=== PATIENT | female | born 1955 | race Two or more races ===

== ENCOUNTER 2021-06-02 13:55 | Observation (INO) ==
--- NOTE | 2021-06-02 14:36 | CT Scan Report ---
CT head/brain wo con CLINICAL HISTORY: 66 years-old Female with vertigo right leg weakeval for stroke. Acute vertigo with weakness TECHNIQUE: Multiple axial CT images of the head were obtained without contrast. A dose lowering tech nique was utilized adhering to the principles of ALARA. COMPARISON: None. FINDINGS: No acute intracranial hemorrhage, midline shift, intracranial mass, hydrocephalus, territorial ischem ia or abnormal extra-axial collection. Cerebral vascular calcifications. The calvarium is intact. The paranasal sinuses, mastoid air cells, and middle ear cavities are clear . IMPRESSION: No acute intracranial abnormality. ACT 112: Negative or not required by law. The above report was generated using voice recognition software. It may contain grammatical, syntax o r spelling errors. Electronically signed by: Norberto Welsh M.D. 06/02/2021 2:35 PM
[2021-06-02] MEDS ORDERED: OPTIRAY 320 125ml IV ONE (14:37)
--- NOTE | 2021-06-02 14:43 | Emergency Department Note ---
History of Present Illness General Chief complaint: Vertigo Stated complaint: HEADACHE, VERITGO, NAUSEA, SOB Time Seen by Provider: 06/02/21 14:06 Source: patient and family Limitations: language barrier (Speaks Sinhala. Granddaughter is translating.) History of Present Illness Provider complaint: Vertigo Onset (ago): hour(s) Location: head Pain Consistency: + constant Maximum Pain Intensity: 4 Quality: + other (Room is spinning around) Exacerbated By: + movement and + other (Standing up) Associated symptoms: + fever/chills, + headaches and + nausea/vomiting; no chest pain, no cough, no shortness of breath or no syncope This is a 66-year-old female with a history of hypertension and depression presenting with sudden onset of vertigo at approximately 10 AM this morning. She only speaks Sinhala. I did obtain history from the patient's granddaughter who is translating for her as well as translating for her mother who was with her when this occurred. Apparently the patient woke up in good health this morning but then at 10 AM started complaining of severe vertigo. It is worse when she tries to stand or move her head. Is better when she stays still. It is associated with nausea but no vomiting. She does complain of a headache on the right side of her head. She states that she does not know when it started. She had significant difficulty getting into the car to come to the hospital due to difficulty walking. Her daughter states that she is very repetitive since this started and keeps asking to have her blood pressure checked. She did not take her morning medications including her blood pressure medication. She is not on aspirin or any anticoagulants as far as the granddaughter knows. She did ask her family what medicine she takes and brought her medicines with her, although many of them are labeled in Sinhala. She does complain of chills but no fever. She has had no cough or cold symptoms. She did have her Covid vaccinations but no booster. She did have a negative PCR Covid test last week when she traveled from [place]. She denies any problems swallowing or sudden change in her vision. She has had no tinnitus or hearing loss. Home Medications Medication Instructions Recorded Confirmed Type buspirone 5 mg tablet 5 mg PO DAILY 06/02/21 06/02/21 History candesartan 16 1 tab PO DAILY 06/02/21 06/02/21 History mg-hydrochlorothiazide 12.5 mg tablet cholecalciferol (vitamin D3) 10 10 mcg PO DAILY 06/02/21 06/02/21 History mcg/mL (400 unit/mL) oral drops ketoprofen 25 mg capsule 25 mg PO DIRECTED 06/02/21 06/02/21 History lansoprazole 30 mg capsule,delayed 30 mg PO DAILY 06/02/21 06/02/21 History release lorazepam 1 mg tablet (Ativan) 1 mg PO DIRECTED 06/02/21 06/02/21 History metoprolol tartrate 50 mg tablet 50 mg PO DIRECTED 06/02/21 06/02/21 History venlafaxine 75 mg tablet,extended 75 mg PO DAILY 06/02/21 06/02/21 History release 24 hr Allergies Allergy/AdvReac Type Severity Reaction Status Date / Time Iodinated Contrast Media AdvReac Intermediate Swelling Verified 06/02/21 15:53 of the Eye Past Med/Surg History Medical History (Updated 06/02/21 @ 19:38 by Hair Zhong MD) Anxiety Hypertension Panic disorder Surgical History (Updated 06/02/21 @ 16:43 by Giulia Ferraro PA-C) History of thyroid surgery Family History Other Depression Parkinson disease Social History (Updated 06/02/21 @ 16:44 by Giulia Ferraro PA-C) Smoking Status: Never smoker Hx Alcohol Use: No Hx Substance Use: No Communication Tools: Other Feels Safe at Home: Yes Review of Systems See HPI for pertinent positives & negatives. and A total of 10 systems reviewed and were otherwise negative Physical Exam Vital Signs Vital Signs - 24 hr 06/02/21 14:01 06/02/21 14:44 06/02/21 16:00 Temperature 36.5 C Temperature Source Oral Pulse Rate 77 Pulse Rate [Apical] 86 74 Pulse Rhythm Regular Pulse Rhythm [Apical] Regular Regular Pulse Strength Normal Pulse Strength [Apical] Normal Respiratory Rate 20 26 H 22 Respiratory Effort / Characteristics Non-Labored Spontaneous Non-Labored Non-Labored Respiratory Depth Normal Normal Respiratory Pattern Regular Blood Pressure 157/113 H Blood Pressure [Left Arm] 186/83 H 159/94 H Blood Pressure Mean 127 Blood Pressure Mean [Left Arm] 117 115 Blood Pressure Position Sitting Blood Pressure Position [Left Arm] Sitting Pulse Oximetry 100 100 100 Oxygen Delivery Method Room Air Room Air Room Air Sepsis Recent Fever Within 48 Hours No Sepsis New/Unexplained Change in Mental Status No Sepsis Action Taken by Nursing No Action Required Constitutional: Vital signs reviewed. Eyes: Pupils are equal round reactive to light. Conjunctiva are noninjected. ENT: Pharynx is clear without erythema or exudate. Mucous membranes are moist. Neck supple without meningeal signs. Respiratory: Clear to auscultation bilaterally. Breath sounds are equal bilaterally. Cardiovascular: Regular rate and rhythm. No rubs or gallops. GI: Soft, nondistended and nontender. Bowel sounds are present. Musculoskeletal: No peripheral edema. No lower extremity tenderness. Integumentary: No cyanosis. or jaundice. Neurologic: The patient is awake and alert. Repetitive. Keeps asking to have her blood pressure checked. Cranial nerves II-XII are intact. Motor is 5 out of 5 all extremities except the right lower extremity where she is 3 out of 5. Sensation is intact to light touch all extremities. No slurring of her speech. No pronator drift. Right leg ataxia. No dysdiadochokinesis. Psychiatric: Anxious appearing. Course Administered Medications Potassium Chloride/Sodium Chloride (Normal Saline W/20 Meq Kcl) 20 meq in 1,000 mls @ 100 mls/hr IV .Q10H TEOFILO Stop: 07/02/21 17:59 Last Admin: 06/02/21 18:22 Dose: 100 mls/hr Documented by: [id number] Venlafaxine HCl (Venlafaxine Hcl Xr 75 Mg Capxr) 75 mg PO DAILY TEOFILO Stop: 07/02/21 17:29 Last Admin: 06/02/21 18:21 Dose: 75 mg Documented by: [id number] Discontinued Medications Aspirin (Aspirin Chew 324 Mg) 324 mg PO NOW STA Stop: 06/02/21 17:09 Last Admin: 06/02/21 18:21 Dose: 324 mg Documented by: [id number] Famotidine (Famotidine 20mg/5ml Iv Push) 20 mg IV ONE STA Stop: 06/02/21 14:45 Last Admin: 06/02/21 14:51 Dose: 20 mg Documented by: [id number] Gadobutrol (Gadobutrol 65ml Vial) 7.2 ml IV ONCE ONE Stop: 06/02/21 17:35 Last Admin: 06/02/21 17:35 Dose: 7.2 ml Documented by: [id number] Sodium Chloride (Nss 1000ml) 500 mls @ 999 mls/hr IV .Q31M ONE Stop: 06/02/21 15:32 Last Infusion: 06/02/21 16:20 Dose: 0 mls/hr Documented by: [id number] Admin: 06/02/21 15:28 Dose: 999 mls/hr Documented by: [id number] Promethazine HCl (Phenergan) 12.5 mg in 50.5 mls @ 202 mls/hr IV NOW STA Stop: 06/02/21 15:58 Last Infusion: 06/02/21 16:20 Dose: 0 mls/hr Documented by: [id number] Admin: 06/02/21 16:02 Dose: 202 mls/hr Documented by: [id number] Ioversol (Optiray 320 125ml) 117 ml IV ONCE ONE Stop: 06/02/21 14:38 Last Admin: 06/02/21 14:38 Dose: 117 ml Documented by: [id number] Loratadine (Loratadine 10 Mg Tab) 10 mg PO NOW ONE Stop: 06/02/21 14:46 Last Admin: 06/02/21 14:52 Dose: 10 mg Documented by: [id number] Meclizine HCl (Meclizine Hcl 25 Mg Tab) 25 mg PO NOW STA Stop: 06/02/21 15:02 Last Admin: 06/02/21 15:12 Dose: 25 mg Documented by: [id number] Methylprednisolone (Methylprednisolone 125 Mg/2 Ml Vial) 125 mg IV NOW STA Stop: 06/02/21 14:45 Last Admin: 06/02/21 14:51 Dose: 125 mg Documented by: [id number] Ondansetron HCl (Ondansetron Inj 2 Mg/Ml 2 Ml Vial) 4 mg IV NOW STA Stop: 06/02/21 14:46 Last Admin: 06/02/21 14:51 Dose: 4 mg Documented by: [id number] Potassium Chloride (Potassium Chloride Crtab 20 Meq Tabcr) 20 meq PO ONE ONE Stop: 06/02/21 17:46 Last Admin: 06/02/21 18:22 Dose: 20 meq Documented by: [id number] Critical Care Time Critical Care Time: Yes Total Critical Care Time: 45 I have personally spent approximately 45 minutes of critical care time in the direct management of this patient. This includes bedside care, interpretation of diagnostic studies, and testing, discussion with consultants, patient, and family members, and other required patient management activities. These minutes are in excess of all separately billable procedures. Medical Decision Making Differential Diagnosis Acute CVA, vertebrobasilar insufficiency, intracranial hemorrhage, complex migraine, BPPV, labyrinthitis Medical Records Attestation: I reviewed the patient's medical records. I did perform a limited focused review of portions of the patient's old chart on the electronic medical record. The patient has had no prior visits to this hospital. Home Medications Current Medication List: was personally reviewed by me Laboratory Data Attestation: I reviewed the patient's lab results. Result diagrams: 06/02/21 14:44 06/02/21 14:44 Lab Results 06/02/21 06/02/21 06/02/21 Range/Units 14:44 14:44 14:44 WBC 6.84 (4.8-10.8) K/uL RBC 4.31 (4.2-5.4) M/uL Hgb 12.8 (12.0-16.0) g/dL Hct 38.6 (37-47) % MCV 89.6 (80-100) fL MCH 29.7 (25-34) pg MCHC 33.2 (32-36) g/dL RDW Std Deviation 47.1 H (36.4-46.3) fL RDW Coeff of [place] 14.4 (11.5-14.5) % Plt Count 216 (130-400) K/uL MPV 10.3 (7.4-10.4) fL Immature Gran % (Auto) 0.1 % Neut % (Auto) 63.6 % Lymph % (Auto) 28.9 % [place] % (Auto) 6.6 % Eos % (Auto) 0.7 % Baso % (Auto) 0.1 % Neut # (Auto) 4.34 (1.4-6.5) K/uL Lymph # (Auto) 1.98 (1.2-3.4) K/uL [place] # (Auto) 0.45 (0.11-0.59) K/uL Eos # (Auto) 0.05 (0-0.5) K/uL Baso # (Auto) 0.01 (0-0.2) K/uL Immature Gran # (Auto) 0.01 (0.00-0.02) K/uL PT 10.4 (9.0-12.0) Seconds INR 1.0 (0.9-1.1) APTT 27.0 (21.0-31.0) Seconds PTT Ratio 1.0 Sodium 131 L (136-145) mmol/L Potassium 3.3 L (3.5-5.1) mmol/L Chloride 101 (98-107) mmol/L Carbon Dioxide 20 L (21-32) mmol/L Anion Gap 10.0 (3-11) BUN 17 (7-18) mg/dl Creatinine 1.06 (0.6-1.2) mg/dl Est Cr Clr Drug Dosing Not Reportable Est GFR ( Amer) 63.4 ml/min Est GFR (Non-Af Amer) 54.7 ml/min BUN/Creatinine Ratio 16.2 (10-20) Glucose 143 H (70-99) mg/dl POC Glucose (70-99) mg/dl Calcium 8.8 (8.5-10.1) mg/dl Magnesium 2.0 (1.8-2.4) mg/dl Total Bilirubin 0.2 (0.2-1) mg/dl AST 14 L (15-37) U/L ALT 23 (12-78) Alkaline Phosphatase 66 (45-117) U/L Troponin I < 0.015 (0-0.045) ng/ml Total Protein 6.3 L (6.4-8.2) gm/dl Albumin 3.0 L (3.4-5.0) gm/dl Globulin 3.3 (2.5-4.0) gm/dl Albumin/Globulin Ratio 0.9 (0.9-2) SARS-CoV-2, RNA, NAAT (NEGATIVE) Blood Type Antibody Screen 06/02/21 06/02/21 06/02/21 Range/Units 14:46 14:48 15:20 WBC (4.8-10.8) K/uL RBC (4.2-5.4) M/uL Hgb (12.0-16.0) g/dL Hct (37-47) % MCV (80-100) fL MCH (25-34) pg MCHC (32-36) g/dL RDW Std Deviation (36.4-46.3) fL RDW Coeff of [place] (11.5-14.5) % Plt Count (130-400) K/uL MPV (7.4-10.4) fL Immature Gran % (Auto) % Neut % (Auto) % Lymph % (Auto) % [place] % (Auto) % Eos % (Auto) % Baso % (Auto) % Neut # (Auto) (1.4-6.5) K/uL Lymph # (Auto) (1.2-3.4) K/uL [place] # (Auto) (0.11-0.59) K/uL Eos # (Auto) (0-0.5) K/uL Baso # (Auto) (0-0.2) K/uL Immature Gran # (Auto) (0.00-0.02) K/uL PT (9.0-12.0) Seconds INR (0.9-1.1) APTT (21.0-31.0) Seconds PTT Ratio Sodium (136-145) mmol/L Potassium (3.5-5.1) mmol/L Chloride (98-107) mmol/L Carbon Dioxide (21-32) mmol/L Anion Gap (3-11) BUN (7-18) mg/dl Creatinine (0.6-1.2) mg/dl Est Cr Clr Drug Dosing Est GFR ( Amer) ml/min Est GFR (Non-Af Amer) ml/min BUN/Creatinine Ratio (10-20) Glucose (70-99) mg/dl POC Glucose 148 H (70-99) mg/dl Calcium (8.5-10.1) mg/dl Magnesium (1.8-2.4) mg/dl Total Bilirubin (0.2-1) mg/dl AST (15-37) U/L ALT (12-78) Alkaline Phosphatase (45-117) U/L Troponin I (0-0.045) ng/ml Total Protein (6.4-8.2) gm/dl Albumin (3.4-5.0) gm/dl Globulin (2.5-4.0) gm/dl Albumin/Globulin Ratio (0.9-2) SARS-CoV-2, RNA, NAAT NEGATIVE (NEGATIVE) Blood Type O Positive Antibody Screen NEGATIVE Imaging Data Radiologist's Impression: Head CT 06/02/21 14:17 CT head/brain wo con CLINICAL HISTORY: 66 years-old Female with vertigo right leg weakeval for stroke. Acute vertigo with weakness TECHNIQUE: Multiple axial CT images of the head were obtained without contrast. A dose lowering technique was utilized adhering to the principles of ALARA. COMPARISON: None. FINDINGS: No acute intracranial hemorrhage, midline shift, intracranial mass, hydrocephalus, territorial ischemia or abnormal extra-axial collection. Cerebral vascular calcifications. The calvarium is intact. The paranasal sinuses, mastoid air cells, and middle ear cavities are clear. IMPRESSION: No acute intracranial abnormality. ACT 112: Negative or not required by law. The above report was generated using voice recognition software. It may contain grammatical, syntax or spelling errors. Electronically signed by: Norberto Welsh M.D. 06/02/2021 2:35 PM Head CTA 06/02/21 14:17 CT angio head w con, CT angio neck with con CLINICAL HISTORY: Stroke Like Symptoms vertigo, right leg weakness TECHNIQUE: CT angiography of the head and neck was performed following intravenous administration of iodinated contrast. Coronal and sagittal MIPS were obtained from the axial data set and were submitted for review. Automated dose lowering techniques and/or adjustment according to patient size were utilized for this examination. All measurements were calculated based on NASCET criteria. Comparison: CT head 06/02/2021 FINDINGS: CTA Neck: A 3 vessel aortic arch is shown. There is no significant atherosclerotic plaque in the aortic arch or the origins of the innominate, left common carotid, and left subclavian arteries. The common carotid, external carotid, cervical segments of the internal carotid arteries, and the cervical segments of the vertebral arteries are patent. There is no hemodynamically significant diameter stenosis or dissection present. The left vertebral artery is dominant. There are large right greater than left thyroid nodules measuring 5.4 cm on the right and 1.7 cm on the left. CTA Head: The anterior and posterior cerebral circulations are patent. No hemodynamically significant stenosis, aneurysm, dissection, or arteriovenous malformation is shown. Atherosclerotic disease is noted. IMPRESSION: 1. No occlusion, hemodynamically significant stenosis, aneurysm, dissection, or arteriovenous malformation in the major intracranial arteries. 2. No occlusion, hemodynamically significant stenosis, or dissection in the major cervical arteries. 3. Large right greater than left thyroid nodules. If not previously evaluated, nonemergent ultrasound is recommended. Assessment of stenosis of the internal carotid arteries is based on NASCET criteria. ACT 112: Negative or not required by law. Electronically signed by: Anoop Rubi M.D. 06/02/2021 2:55 PM Neck CTA 06/02/21 14:17 CT angio head w con, CT angio neck with con CLINICAL HISTORY: Stroke Like Symptoms vertigo, right leg weakness TECHNIQUE: CT angiography of the head and neck was performed following intravenous administration of iodinated contrast. Coronal and sagittal MIPS were obtained from the axial data set and were submitted for review. Automated dose lowering techniques and/or adjustment according to patient size were utilized for this examination. All measurements were calculated based on NASCET criteria. Comparison: CT head 06/02/2021 FINDINGS: CTA Neck: A 3 vessel aortic arch is shown. There is no significant atherosclerotic plaque in the aortic arch or the origins of the innominate, left common carotid, and left subclavian arteries. The common carotid, external carotid, cervical segments of the internal carotid arteries, and the cervical segments of the vertebral arteries are patent. There is no hemodynamically significant diameter stenosis or dissection present. The left vertebral artery is dominant. There are large right greater than left thyroid nodules measuring 5.4 cm on the right and 1.7 cm on the left. CTA Head: The anterior and posterior cerebral circulations are patent. No hemodynamically significant stenosis, aneurysm, dissection, or arteriovenous malformation is shown. Atherosclerotic disease is noted. IMPRESSION: 1. No occlusion, hemodynamically significant stenosis, aneurysm, dissection, or arteriovenous malformation in the major intracranial arteries. 2. No occlusion, hemodynamically significant stenosis, or dissection in the major cervical arteries. 3. Large right greater than left thyroid nodules. If not previously evaluated, nonemergent ultrasound is recommended. Assessment of stenosis of the internal carotid arteries is based on NASCET criteria. ACT 112: Negative or not required by law. Electronically signed by: Anoop Rubi M.D. 06/02/2021 2:55 PM Brain MRI 06/02/21 15:52 MR brain wo/w con CLINICAL HISTORY: vertigo eval for cva TECHNIQUE: Multiplanar and multisequence MR images of the brain were obtained prior to and following administration of gadolinium contrast. Comparison: None available at the time of this dictation. FINDINGS: No abnormal restricted diffusion is identified. The white matter is un remarkable. The ventricular system is normal in appearance. There is no evidence of acute intraparenchymal hemorrhage. No extra axial fluid collections are seen. There are no masses, mass effect, or midline shift. No abnormal enhancement is seen. The corpus callosum, pituitary gland, and cerebellar tonsils appear grossly unremarkable. Flow voids of the major intracranial arterial vessels are identified. The imaged portions of the paranasal sinuses, mastoid air cells, and orbits are unremarkable. IMPRESSION: No acute abnormalities. ACT 112: Negative or not required by law. Electronically signed by: Anoop Rubi M.D. 06/02/2021 6:24 PM ECG Data Attestation: I personally reviewed and interpreted this ECG as follows: Indication: + altered mental status and + other (Stroke symptoms) Rate (beats per minute): 76 Rhythm: + normal sinus ECG [place]: + Normal ECG ST segments: no ST elevation ECG Findings: no PVCs Comparison ECG Date: no prior available MDM Narrative I did evaluate the patient as noted above. I did obtain history from the patient via her granddaughter who is translating from Sinhala. They were offered a professional translating service but declined. I also obtained history from her daughter over the telephone with her granddaughter translating. Originally I was told that her symptoms started at 11 AM and so I did call a stroke alert. Later I was told that her symptoms actually started at least by 10 AM. This is not even a reliable time and so I did feel IV TPA was not indicated given the timing. I did discuss the case with the [facility] stroke neurologist who assessed the patient via telehealth and agreed that TPA was not indicated. We did discuss this with the patient and her family. I did notice some weakness to the right leg on my examination but when the neurologist examined her she did not appear to have this weakness. IV access was established. I did order a CT of the head and CT angiogram of the head and neck. I did review the images myself as well as the radiology report as jose cribed above.there is no evidence of acute CVA or bleed. There is no evidence of acute process. She does have thyroid nodules which were discussed with the patient and her family. Unfortunately the patient developed an allergic reaction to the IV contrast. She developed hives to her face but had no difficulty breathing or hives other on her body. I did treat her with Solu- Medrol IV, Zofran IV and Claritin p.o. I did not wish to give her Benadryl as I want to be able to reassess her mental status regularly. I did place an order for continuous cardiac monitoring. The monitor showed normal sinus rhythm at a rate of 74 bpm. I did order and personally review the patient's 12-lead EKG as d escribed above. She has no acute ischemic changes. I did order and review the patient's blood work as noted in the electronic medical record. CBC is unremarkable without leukocytosis or anemia. Electrolytes demonstrate a sodium of 131 and a potassium of 3.3. Glucose is 148 at the bedside. Troponin is negative. LFTs are unremarkable. Screening for Covid is negative. I did reassess the patient several times. She had worsening vertigo and now states is worse when she lies down. She was given meclizine p.o. and then Phenergan 12.5 mg IV. She was also given normal saline IV. Her symptoms did improve significantly. I did discuss the case with the hospitalist and case picker. I did order an MRI of the brain. Impression & Plan Acute alteration in mental status, Vertigo, Acute confusion, Ataxia, Acute hyponatremia, Acute hypokalemia Discharge Plan Visit Data Chief Complaint: Vertigo Stated Complaint: HEADACHE, VERITGO, NAUSEA, SOB ED Provider: Hair Zhong Discharge Problem: Acute alteration in mental status, Vertigo, Acute confusion, Ataxia, Acute hyponatremia, Acute hypokalemia Patient Disposition: Being Evaluated by Hospitalist Forms Stand Alone Forms: My [facility] Prescriptions Prescriptions: No Action ketoprofen 25 mg Capsule 25 mg PO DIRECTED RF: 0 candesartan-hydrochlorothiazid 16-12.5 mg Tablet 1 tab PO DAILY RF: 0 metoprolol tartrate 50 mg Tablet 50 mg PO DIRECTED RF: 0 venlafaxine 75 mg Tablet Extended Release 24hr 75 mg PO DAILY RF: 0 buspirone 5 mg Tablet 5 mg PO DAILY RF: 0 lorazepam [Ativan] 1 mg Tablet 1 mg PO DIRECTED RF: 0 lansoprazole 30 mg Capsule,Delayed Release(Dr/Ec) 30 mg PO DAILY RF: 0 cholecalciferol (vitamin D3) 10 mcg/mL (400 unit/mL) Drops 10 mcg PO DAILY RF: 0 Referrals Referrals: PCP,NO [Primary Care Provider] -
[2021-06-02] MEDS ORDERED: FAMOTIDINE 20MG/5ML IV PUSH IV STA (14:44)
[2021-06-02] MEDS ORDERED: methylPREDNISolone 125 MG/2 ML VIAL IV STA (14:44)
[2021-06-02] MEDS ORDERED: ONDANSETRON INJ 2 MG/ML 2 ML VIAL IV STA (14:45)
[2021-06-02] MEDS ORDERED: LORATADINE 10 MG TAB PO ONE (14:45)
--- NOTE | 2021-06-02 14:56 | CT Scan Report ---
CT angio head w con, CT angio neck with con CLINICAL HISTORY: Stroke Like Symptoms vertigo, right leg weakness TECHNIQUE: CT angiography of the head and neck was performed following intravenous administration of iodinated contrast. Coronal and sagittal MIPS were obtained from the axial data set and were submitte d for review. Automated dose lowering techniques and/or adjustment according to patient size were ut ilized for this examination. All measurements were calculated based on NASCET criteria. Comparison: CT head 06/02/2021 FINDINGS: CTA Neck: A 3 vessel aortic arch is shown. There is no significant atherosclerotic plaque in the aor tic arch or the origins of the innominate, left common carotid, and left subclavian arteries. The co mmon carotid, external carotid, cervical segments of the internal carotid arteries, and the cervical segments of the vertebral arteries are patent. There is no hemodynamically significant diameter sten osis or dissection present. The left vertebral artery is dominant. There are large right greater than left thyroid nodules measuring 5.4 cm on the right and 1.7 cm on the left. CTA Head: The anterior and posterior cerebral circulations are patent. No hemodynamically significan t stenosis, aneurysm, dissection, or arteriovenous malformation is shown. Atherosclerotic disease is noted. IMPRESSION: 1. No occlusion, hemodynamically significant stenosis, aneurysm, dissection, or arteriovenous malfor mation in the major intracranial arteries. 2. No occlusion, hemodynamically significant stenosis, or dissection in the major cervical arteries. 3. Large right greater than left thyroid nodules. If not previously evaluated, nonemergent ultrasoun d is recommended. Assessment of stenosis of the internal carotid arteries is based on NASCET criteria. ACT 112: Negative or not required by law. Electronically signed by: Anoop Rubi M.D. 06/02/2021 2:55 PM
[2021-06-02] MEDS ORDERED: MECLIZINE HCL 25 MG TAB PO STA (15:01)
[2021-06-02 15:02] LABS: Basophils # (auto) 0.01 K/uL (0-0.2); Basophils % (auto) 0.1 %; Eosinophils # (auto) 0.05 K/uL (0-0.5); Eosinophils % (auto) 0.7 %; Hematocrit (blood only) 38.6 % (37-47); Hemoglobin 12.8 g/dL (12.0-16.0); Immature Granulocytes # (auto) 0.01 K/uL (0.00-0.02); Immature Granulocytes % (auto) 0.1 %; Lymphocytes # (auto) 1.98 K/uL (1.2-3.4); Lymphocytes % (auto) 28.9 %; Mean Corpuscular Hemoglobin 29.7 pg (25-34); Mean Corpuscular Hgb Conc 33.2 g/dL (32-36); Mean Corpuscular Volume 89.6 fL (80-100); Mean Platelet Volume 10.3 fL (7.4-10.4); Monocytes # (auto) 0.45 K/uL (0.11-0.59); Monocytes % (auto) 6.6 %; Neutrophils # (auto) 4.34 K/uL (1.4-6.5); Neutrophils % (auto) 63.6 %; Platelet Count 216 K/uL (130-400); RDW Coefficient of Variation 14.4 % (11.5-14.5); RDW Standard Deviation 47.1 fL (36.4-46.3); Red Blood Count 4.31 M/uL (4.2-5.4); White Blood Count 6.84 K/uL (4.8-10.8)
[2021-06-02] MEDS ORDERED: SODIUM CHLORIDE 0.9% 1000ML 500 ML IV ONE (15:02)
[2021-06-02 15:15] LABS: Prothrombin Time 10.4 Seconds (9.0-12.0)
[2021-06-02 15:22] LABS: Alanine Aminotransferase 23 (12-78); Aspartate Aminotransferase 14 U/L (15-37); BUN Creatinine Ratio 16.2 (10-20); Blood Urea Nitrogen 17 mg/dl (7-18); Calcium 8.8 mg/dl (8.5-10.1); Carbon Dioxide 20 mmol/L (21-32); Chloride 101 mmol/L (98-107); Est GFR (African American) 63.4 ml/min; Est GFR (Non-African American) 54.7 ml/min; Glucose 143 mg/dl (70-99); Potassium 3.3 mmol/L (3.5-5.1); Sodium 131 mmol/L (136-145)
[2021-06-02 15:27] LABS: Albumin Globulin Ratio 0.9 (0.9-2); Alkaline Phosphatase 66 U/L (45-117); Bilirubin,Total 0.2 mg/dl (0.2-1); Globulin 3.3 gm/dl (2.5-4.0); Total Protein 6.3 gm/dl (6.4-8.2); Troponin I < 0.015 ng/ml (0-0.045)
[2021-06-02] MEDS ORDERED: PROMETHAZINE 12.5 MG/50.5 ML BAG IV STA (15:44)
--- NOTE | 2021-06-02 15:49 | History & Physical Report ---
Date of Service June 02, 2021 Assessment & Plan (1) Vertigo: (2) AMS (altered mental status): (3) Right sided weakness: Plan: This is a 66yo F visiting from [place] with a PMH of HTN and anxiety who presents with vertigo, confusion and right sided weakness that is new since this morning. RLE weakness improved, still with vertigo and confusion Non-compliance with BP medications for past few days. No known stroke history Given aspirin 324mg in ED CT head with no acute intracranial abnormality CTA head/neck: * 1. No occlusion, hemodynamically significant stenosis, aneurysm, dissection, or arteriovenous malformation in the major intracranial arteries. * 2. No occlusion, hemodynamically significant stenosis, or dissection in the major cervical arteries. * 3. Large right greater than left thyroid nodules. If not previously evaluated, nonemergent ultrasound is recommended. Vertigo slightly improved with meclizine. Plan to continue PRN Brain MRI w/wo, echo with bubble study ordered PT/OT/speech evaluation ordered, fasting lipid panel and a1c in AM Routine neuro consult, aspirin and statin tomorrow (4) Hypokalemia: (5) Hyponatremia: Plan: Na 131, potassium 3.3 in setting of HCTZ - hold for now Receiving gentle IV fluids. Replacing potassium. Repeat BMP tomorrow (6) Panic disorder: (7) Anxiety: Plan: Given missed doses of venlafaxine, buspar. Clarifying Ativan dose with family - needs to be updated (8) Hypertension: Plan: Plan to hold antihypertensives for now to allow for permissive HTN in setting of possible ischemic event DVT Ppx: SQ heparin Code status: FULL PCP: Resides in [place] (here visiting family) Dispo: Observation PCU Patient seen in collaboration with Dr. Sagastume. Please see addendum. History of Present Illness Chief Complaint: strokelike symptoms Primary Care Provider: NO PCP This is a 66yo F with a PMH of HTN and anxiety who presents with vertigo since 10 this morning. Patient is visiting family from [place] for the holidays and family is interpreting at bedside. Patient reportedly woke up feeling well and made herself breakfast and was in normal state of health. Vertigo worsened with movement and improves at rest. Is associated with nausea but no vomiting. Did have a headache earlier today and is unsure when it started. Family denies any history of vertigo. Developed right-sided weakness during transition to come in the hospital and family states it took them approximately 40 minutes for granddaughter and friend to get her here due to severe vertigo and weakness. States she was still able to ambulate with assistance. Weakness has since improved, per patient. No known history of vertigo. Family states patient is confused and has been repeating information since arrival. Believes she is still in [place] and is disoriented, per family, which is not her baseline. Keeps asking for blood pressure to be rechecked. Received psychiatric treatment for panic attacks a few days ago in [place] and was told that her elevated blood pressure was due to anxiety, and so she stopped taking blood pressure medications at that time. Is not on aspirin or any blood thinners. No known personal or family stroke history. Denies any fever, chills, chest pain, shortness of breath or abdominal pain. Unable to obtain full ROS due to confusion. Allergies Allergy/AdvReac Type Severity Reaction Status Date / Time Iodinated Contrast Media AdvReac Intermediate Swelling Verified 06/02/21 15:53 of the Eye Home Medications Medication Instructions Recorded Confirmed Type buspirone 5 mg tablet 5 mg PO DAILY 06/02/21 06/02/21 History candesartan 16 1 tab PO DAILY 06/02/21 06/02/21 History mg-hydrochlorothiazide 12.5 mg tablet cholecalciferol (vitamin D3) 10 10 mcg PO DAILY 06/02/21 06/02/21 History mcg/mL (400 unit/mL) oral drops ketoprofen 25 mg capsule 25 mg PO DIRECTED 06/02/21 06/02/21 History lansoprazole 30 mg capsule,delayed 30 mg PO DAILY 06/02/21 06/02/21 History release lorazepam 1 mg tablet (Ativan) 1 mg PO DIRECTED 06/02/21 06/02/21 History metoprolol tartrate 50 mg tablet 50 mg PO DIRECTED 06/02/21 06/02/21 History venlafaxine 75 mg tablet,extended 75 mg PO DAILY 06/02/21 06/02/21 History release 24 hr Past Med/Surg History Medical History (Updated 06/02/21 @ 16:42 by Giulia Ferraro PA-C) Anxiety Hypertension Panic disorder Surgical History (Updated 06/02/21 @ 16:43 by Giulia Ferraro PA-C) History of thyroid surgery Family History Other Depression Parkinson disease Social History (Updated 06/02/21 @ 16:44 by Giulia Ferraro PA-C) Smoking Status: Never smoker Hx Alcohol Use: No Hx Substance Use: No Communication Tools: Other Feels Safe at Home: Yes Review of Systems Review of Systems: Unobtainable due to cognitive status Limited ROS in HPI. Remainder unobtainable due to cognitive status Physical Exam Physical Exam: General Appearance: WD/WN, vitals as above, NAD, sitting upright in bed, appears anxious, able to follow commands Head: normocephalic, atraumatic Eyes: normal inspection, PERRL, conjunctivae normal, anicteric sclerae ENT: external ear and nose normal, oropharynx normal Neck: normal visual inspection, trachea midline, no thyromegaly Respiratory: normal respiratory effort, lungs clear to auscultation, no wheeze, rales, rhonchi. No accessory muscle use Cardiovascular: regular rate, rhythm, no murmur, normal peripheral pulses, no BLE edema. Vessels: no JVD Chest: normal inspection of chest Abdomen/GI: normal bowel sounds, soft, nontender, no hepatosplenomegaly Extremities/Musculoskeletal: no cyanosis or clubbing, extremities motor strength 5/5 Neurologic: PERRL, EOMI, accommodation nl, no vertigo noted, no face palsy, no dysarthria, CN's II-XI intact bilaterally and moves all extremities Psychiatric: A+Ox person but not to time or place, anxious Skin: no rashes, normal color, warm/dry Results & Data Results & Data ([facility]) Vital Signs (Past 12 Hours) Vital Signs Temp Pulse Pulse Resp BP BP Pulse Ox 06/02/21 14:44 86 26 H 186/83 H 100 06/02/21 14:01 36.5 C 77 20 157/113 H 100 Laboratory Results Short CBC 06/02/21 Range/Units 14:44 WBC 6.84 (4.8-10.8) K/uL Hgb 12.8 (12.0-16.0) g/dL Hct 38.6 (37-47) % Plt Count 216 (130-400) K/uL BMP 06/02/21 14:44 Sodium 131 L Potassium 3.3 L Chloride 101 Carbon Dioxide 20 L BUN 17 Creatinine 1.06 Glucose 143 H Calcium 8.8 Cardiac Enzymes 06/02/21 Range/Units 14:44 Troponin I < 0.015 (0-0.045) ng/ml Liver Function 06/02/21 Range/Units 14:44 Total Bilirubin 0.2 (0.2-1) mg/dl AST 14 L (15-37) U/L ALT 23 (12-78) Alkaline Phosphatase 66 (45-117) U/L Albumin 3.0 L (3.4-5.0) gm/dl Diagnostic Findings Head CT 06/02/21 14:17 CT head/brain wo con CLINICAL HISTORY: 66 years-old Female with vertigo right leg weakeval for stroke. Acute vertigo with weakness TECHNIQUE: Multiple axial CT images of the head were obtained without contrast. A dose lowering technique was utilized adhering to the principles of ALARA. COMPARISON: None. FINDINGS: No acute intracranial hemorrhage, midline shift, intracranial mass, hydrocephalus, territorial ischemia or abnormal extra-axial collection. Cerebral vascular calcifications. The calvarium is intact. The paranasal sinuses, mastoid air cells, and middle ear cavities are clear. IMPRESSION: No acute intracranial abnormality. ACT 112: Negative or not required by law. The above report was generated using voice recognition software. It may contain grammatical, syntax or spelling errors. Electronically signed by: Norberto Welsh M.D. 06/02/2021 2:35 PM Head CTA 06/02/21 14:17 CT angio head w con, CT angio neck with con CLINICAL HISTORY: Stroke Like Symptoms vertigo, right leg weakness TECHNIQUE: CT angiography of the head and neck was performed following intravenous administration of iodinated contrast. Coronal and sagittal MIPS were obtained from the axial data set and were submitted for review. Automated dose lowering techniques and/or adjustment according to patient size were utilized for this examination. All measurements were calculated based on NASCET criteria. Comparison: CT head 06/02/2021 FINDINGS: CTA Neck: A 3 vessel aortic arch is shown. There is no significant atherosclerotic plaque in the aortic arch or the origins of the innominate, left common carotid, and left subclavian arteries. The common carotid, external carotid, cervical segments of the internal carotid arteries, and the cervical segments of the vertebral arteries are patent. There is no hemodynamically significant diameter stenosis or dissection present. The left vertebral artery is dominant. There are large right greater than left thyroid nodules measuring 5.4 cm on the right and 1.7 cm on the left. CTA Head: The anterior and posterior cerebral circulations are patent. No hemodynamically significant stenosis, aneurysm, dissection, or arteriovenous malformation is shown. Atherosclerotic disease is noted. IMPRESSION: 1. No occlusion, hemodynamically significant stenosis, aneurysm, dissection, or arteriovenous malformation in the major intracranial arteries. 2. No occlusion, hemodynamically significant stenosis, or dissection in the major cervical arteries. 3. Large right greater than left thyroid nodules. If not previously evaluated, nonemergent ultrasound is recommended. Assessment of stenosis of the internal carotid arteries is based on NASCET criteria. ACT 112: Negative or not required by law. Electronically signed by: Anoop Rubi M.D. 06/02/2021 2:55 PM Neck CTA 06/02/21 14:17 CT angio head w con, CT angio neck with con CLINICAL HISTORY: Stroke Like Symptoms vertigo, right leg weakness TECHNIQUE: CT angiography of the head and neck was performed following intravenous administration of iodinated contrast. Coronal and sagittal MIPS were obtained from the axial data set and were submitted for review. Automated dose lowering techniques and/or adjustment according to patient size were utilized for this examination. All measurements were calculated based on NASCET criteria. Comparison: CT head 06/02/2021 FINDINGS: CTA Neck: A 3 vessel aortic arch is shown. There is no significant atherosclerotic plaque in the aortic arch or the origins of the innominate, left common carotid, and left subclavian arteries. The common carotid, external carotid, cervical segments of the internal carotid arteries, and the cervical segments of the vertebral arteries are patent. There is no hemodynamically sig nificant diameter stenosis or dissection present. The left vertebral artery is dominant. There are large right greater than left thyroid nodules measuring 5.4 cm on the right and 1.7 cm on the left. CTA Head: The anterior and posterior cerebral circulations are patent. No hemodynamically significant stenosis, aneurysm, dissection, or arteriovenous malformation is shown. Atherosclerotic disease is noted. IMPRESSION: 1. No occlusion, hemodynamically significant stenosis, aneurysm, dissection, or arteriovenous malformation in the major intracranial arteries. 2. No occlusion, hemodynamically significant stenosis, or dissection in the major cervical arteries. 3. Large right greater than left thyroid nodules. If not previously evaluated, nonemergent ultrasound is recommended. Assessment of stenosis of the internal carotid arteries is based on NASCET criteria. ACT 112: Negative or not required by law. Electronically signed by: Anoop Rubi M.D. 06/02/2021 2:55 PM Supervising Physician Co-Signing Physician Notes Attending addendum: The patient was seen and examined in emergency room in presence of the son She speaks Hungarian and cannot understand or speak Azeri The conversation was done through the son in the room The symptoms have been vague. She has a history of panic disorder and also chronic dizziness and episodic hypertension. Has been taking medications for those but not for the blood pressure. This morning around 10 AM she complained of severe dizziness and headache when she was brought into the emergency room with a possible stroke alert She cannot remember this episode during my examination at around 6:25 PM. She denies any significant neurological symptoms or other symptoms On examination No apparent distress at rest Hemodynamically stable with blood pressure on the upper side at 159/94 Chestclear HeartS1, S2 no murmur Abdomenbenign Extremitiesno edema [employer]-she is alert, awake and oriented x3. She does not have any focal sensory and/or motor deficit. Her labs, EKG and imaging studies reviewed Has history of dizziness and presented with severe vertigo doubt any stroke Episodic hypertension Panic disorder Stroke work-up in progress and so far imaging studies are negative We will observe in the hospital and likely discharge tomorrow Agree with assessment and plan as outlined above by DOLLY Davies Dr
[2021-06-02] MEDS ORDERED: ASPIRIN CHEW 324 MG PO STA (17:08)
[2021-06-02] MEDS ORDERED: GADOBUTROL 65ML VIAL IV ONE (17:34)
[2021-06-02] MEDS ORDERED: POTASSIUM CHLORIDE CRTAB 20 MEQ TABCR PO ONE (17:45)
[2021-06-02] MEDS: VENLAFAXINE HCL XR 75 MG CAPXR PO SCH (18:21)
[2021-06-02] MEDS: NSS + 20MEQ KCL 20 MEQ/1,000 ML BAG IV SCH (18:22)
--- NOTE | 2021-06-02 18:26 | Magnetic Resonance Report ---
MR brain wo/w con CLINICAL HISTORY: vertigo eval for cva TECHNIQUE: Multiplanar and multisequence MR images of the brain were obtained prior to and following administration of gadolinium contrast. Comparison: None available at the time of this dictation. FINDINGS: No abnormal restricted diffusion is identified. The white matter is unremarkable. The ventricular sys tem is normal in appearance. There is no evidence of acute intraparenchymal hemorrhage. No extra axia l fluid collections are seen. There are no masses, mass effect, or midline shift. No abnormal enhance ment is seen. The corpus callosum, pituitary gland, and cerebellar tonsils appear grossly unremarkab le. Flow voids of the major intracranial arterial vessels are identified. The imaged portions of the para nasal sinuses, mastoid air cells, and orbits are unremarkable. IMPRESSION: No acute abnormalities. ACT 112: Negative or not required by law. Electronically signed by: Anoop Rubi M.D. 06/02/2021 6:24 PM
[2021-06-02] MEDS ORDERED: POLYETHYLENE (MIRALAX) 17 GM PACK PO PRN (20:35)
[2021-06-02] MEDS ORDERED: MECLIZINE 12.5 MG TAB PO PRN (20:35)
[2021-06-02] MEDS ORDERED: ONDANSETRON INJ 2 MG/ML 2 ML VIAL IV PRN (20:35)
[2021-06-02] MEDS ORDERED: ACETAMINOPHEN 325 MG TAB PO PRN (20:35)
[2021-06-02] MEDS ORDERED: PHARMACIST DISCHARGE MED REC CONSULT PRN (20:35)
[2021-06-02] MEDS: HEPARIN SOD 5,000 UNIT/0.5 ML VIAL SQ SCH (22:09)
[2021-06-02] MEDS: busPIRone 5 MG TAB PO SCH (22:09)
[2021-06-03] MEDS: NSS + 20MEQ KCL 20 MEQ/1,000 ML BAG IV SCH (04:44)
[2021-06-03] MEDS: HEPARIN SOD 5,000 UNIT/0.5 ML VIAL SQ SCH (05:51)
[2021-06-03 05:54] LABS: Hematocrit (blood only) 40.1 % (37-47); Hemoglobin 13.6 g/dL (12.0-16.0); Mean Corpuscular Hemoglobin 30.9 pg (25-34); Mean Corpuscular Hgb Conc 33.9 g/dL (32-36); Mean Corpuscular Volume 91.1 fL (80-100); Mean Platelet Volume 10.3 fL (7.4-10.4); Platelet Count 223 K/uL (130-400); RDW Coefficient of Variation 14.8 % (11.5-14.5); RDW Standard Deviation 50.1 fL (36.4-46.3); White Blood Count 9.14 K/uL (4.8-10.8)
[2021-06-03 06:20] LABS: BUN Creatinine Ratio 27.1 (10-20); Blood Urea Nitrogen 17 mg/dl (7-18); Calcium 9.2 mg/dl (8.5-10.1); Carbon Dioxide 24 mmol/L (21-32); Chloride 112 mmol/L (98-107); Chol HDL Ratio 3; Cholesterol 262 mg/dl (0-200); Est GFR (African American) 108.3 ml/min; Est GFR (Non-African American) 93.5 ml/min; Glucose 112 mg/dl (70-99); HDL Cholesterol 84 mg/dl; LDL Cholesterol Calculated 170 mg/dl; Potassium 4.5 mmol/L (3.5-5.1); Sodium 140 mmol/L (136-145); Triglycerides 41 mg/dl (0-150); VLDL Cholesterol 8 mg/dl
[2021-06-03 07:49] LABS: Estimated Average Glucose 123 mg/dl; Hemoglobin A1C 5.9 % (4.5-5.6)
[2021-06-03] MEDS: busPIRone 5 MG TAB PO SCH (08:28)
[2021-06-03] MEDS: VENLAFAXINE HCL XR 75 MG CAPXR PO SCH (08:28)
[2021-06-03] MEDS ORDERED: ASPIRIN 81 MG ECTAB PO SCH (09:00)
[2021-06-03] MEDS ORDERED: VENLAFAXINE HCL XR 75 MG CAPXR PO SCH (09:00)
[2021-06-03] MEDS ORDERED: PANTOprazole 40 MG TAB PO SCH (09:00)
--- NOTE | 2021-06-03 10:22 | Electrocardiogram Report ---
Test Reason : Blood Pressure : / mmHG Vent. Rate : 076 BPM Atrial Rate : 076 BPM P-R Int : 192 ms QRS Dur : 098 ms QT Int : 410 ms P-R-T Axes : 048 014 054 degrees QTc Int : 461 ms Normal sinus rhythm Normal ECG No previous ECGs available Confirmed by Cholo Lala ([id number]) on 06/03/2021 10:21:19 AM Referred By: REFERRED SELF Confirmed By:Cholo Lala
--- NOTE | 2021-06-03 14:43 | Hospitalist Progress Note ---
Date of Service June 03, 2021 Assessment & Plan (1) Vertigo: Plan: Vertigo has been ongoing and seems to be secondary to inner ear disease Vertigo is reproducible as per the neurologist MRI scan has been negative Appreciate neurology input and recommendation She will be given Antivert as needed and if discharged home this afternoon (2) AMS (altered mental status): Plan: Resolved (3) Right sided weakness: Plan: No right-sided weakness on clinical examination noted since yesterday-06/02/2021 No evidence of a stroke And no amnesia This is a 66yo F visiting from [place] with a PMH of HTN and anxiety who presents with vertigo, confusion and right sided weakness that is new since this morning. RLE weakness improved, still with vertigo and confusion Non-compliance with BP medications for past few days. No known stroke history Given aspirin 324mg in ED CT head with no acute intracranial abnormality CTA head/neck: * 1. No occlusion, hemodynamically significant stenosis, aneurysm, dissection, or arteriovenous malformation in the major intracranial arteries. * 2. No occlusion, hemodynamically significant stenosis, or dissection in the major cervical arteries. * 3. Large right greater than left thyroid nodules. If not previously evaluated, nonemergent ultrasound is recommended. Vertigo slightly improved with meclizine. Plan to continue PRN Brain MRI-has been negative Echo of the heart-normal LV size, mild concentric LVH, all motion is normal, EF 60 to 65%, all chambers are normal, aortic valve sclerosis mild without stenosis, trace aortic regurgitation, the interatrial septum is intact with no evidence of an atrial septal defect and no evidence of intra-atrial shunt Lipid profile noted to have a cholesterol of 262 and LDL of 170 Hemoglobin A1c is 5.9 Appreciate neurology input and recommendation She has been ambulating in the room without any difficulties Discussed with the granddaughter and she will be discharged home this afternoon Will give her Plavix 75 mg once a day and aspirin 81 mg once a day for 21 days then aspirin alone Also will start Lipitor 20 mg once a day (4) Hypokalemia: Plan: Normalized (5) Hyponatremia: Plan: Na 131, potassium 3.3 in setting of HCTZ - hold for now Receiving gentle IV fluids. Replacing potassium. Repeat BMP tomorrow Normalized (6) Panic disorder: Plan: We will continue her outpatient medications (7) Anxiety: Plan: Given missed doses of venlafaxine, buspar. Clarifying Ativan dose with family - needs to be updated (8) Hypertension: Plan: Plan to hold antihypertensives for now to allow for permissive HTN in setting of possible ischemic event DVT Ppx: SQ heparin Code status: FULL PCP: Resides in [place] (here visiting family) Dispo: Observation PCU Will be discharged home this afternoon Admission and Anticipated Discharge Date Admission Date: June 02, 2021 Subjective 06/03/2021 The patient was seen and examined in emergency room in presence of the granddaughter She has been feeling much better and complains to have minimal dizziness without headache and/or any other neurological symptoms She was seen by the neurologist and was advised that she could be discharged Review of Systems Review of Systems: All systems reviewed and are unremarkable except as noted below Physical Exam Physical Exam: General Appearance: WD/WN, vitals as above, NAD, sitting upright in bed, appears anxious, able to follow commands Head: normocephalic, atraumatic Eyes: normal inspection, PERRL, conjunctivae normal, anicteric sclerae ENT: external ear and nose normal, oropharynx normal Neck: normal visual inspection, trachea midline, no thyromegaly Respiratory: normal respiratory effort, lungs clear to auscultation, no wheeze, rales, rhonchi. No accessory muscle use Cardiovascular: regular rate, rhythm, no murmur, normal peripheral pulses, no BLE edema. Vessels: no JVD Chest: normal inspection of chest Abdomen/GI: normal bowel sounds, soft, nontender, no hepatosplenomegaly Extremities/Musculoskeletal: no cyanosis or clubbing, extremities motor strength 5/5 Neurologic: PERRL, EOMI, accommodation nl, no vertigo noted, no face palsy, no dysarthria, CN's II-XI intact bilaterally and moves all extremities Psychiatric: A+Ox person but not to time or place, anxious Skin: no rashes, normal color, warm/dry Constitutional: well developed and well nourished; not ill appearing Musculoskeletal: No acute arthritis in any joint Results & Data Results & Data ([facility]) Vital Signs (Past 12 Hours) Vital Signs Temp Pulse Resp BP Pulse Ox 06/03/21 11:17 80 18 139/76 98 06/03/21 11:04 36.9 C 74 18 139/76 93 06/03/21 07:15 36.5 C 67 18 130/65 94 06/03/21 05:29 65 16 126/43 L 98 06/03/21 02:46 65 16 126/66 96 Laboratory Results Short CBC 06/02/21 06/03/21 Range/Units 14:44 04:59 WBC 6.84 9.14 (4.8-10.8) K/uL Hgb 12.8 13.6 (12.0-16.0) g/dL Hct 38.6 40.1 (37-47) % Plt Count 216 223 (130-400) K/uL BMP 06/02/21 06/03/21 14:44 04:59 Sodium 131 L 140 D Potassium 3.3 L 4.5 D Chloride 101 112 H Carbon Dioxide 20 L 24 BUN 17 17 Creatinine 1.06 0.63 D Glucose 143 H 112 H Calcium 8.8 9.2 Cardiac Enzymes 06/02/21 Range/Units 14:44 Troponin I < 0.015 (0-0.045) ng/ml Liver Function 06/02/21 Range/Units 14:44 Total Bilirubin 0.2 (0.2-1) mg/dl AST 14 L (15-37) U/L ALT 23 (12-78) Alkaline Phosphatase 66 (45-117) U/L Albumin 3.0 L (3.4-5.0) gm/dl Medications Administered Current Inpatient Medications Acetaminophen (Acetaminophen 325 Mg Tab) 650 mg PO Q4H PRN PRN Reason: Pain or Fever Stop: 07/02/21 20:34 Aspirin (Aspirin 81 Mg Ectab) 81 mg PO DAILY [facility] Stop: 07/03/21 08:59 Last Admin: 06/03/21 08:28 Dose: 81 mg Documented by: Buspirone HCl (Buspirone 5 Mg Tab) 5 mg PO DAILY [facility] Stop: 07/02/21 20:59 Last Admin: 06/03/21 08:28 Dose: 5 mg Documented by: Heparin Sodium (Porcine) (Heparin Sod 5,000 Unit/0.5 Ml Vial) 5,000 units SQ Q8 TEOFILO Stop: 07/02/21 21:59 Last Admin: 06/03/21 05:51 Dose: Not Given Documented by: Meclizine HCl (Meclizine 12.5 Mg Tab) 12.5 mg PO TID PRN PRN Reason: Vertigo Stop: 07/02/21 20:34 Miscellaneous Information (Pharmacist Discharge Med Rec Consult) 1 ea N/A UD PRN PRN Reason: Consult Stop: 07/02/21 20:34 Ondansetron HCl (Ondansetron Inj 2 Mg/Ml 2 Ml Vial) 4 mg IV Q6H PRN PRN Reason: Nausea Stop: 07/02/21 20:34 Pantoprazole Sodium (Pantoprazole 40 Mg Tab) 40 mg PO DAILY [facility] Stop: 07/03/21 08:59 Last Admin: 06/03/21 08:28 Dose: 40 mg Documented by: Polyethylene Glycol (Polyethylene (Miralax) 17 Gm Pack) 17 gm PO DAILY PRN PRN Reason: Constipation Stop: 07/02/21 20:34 Venlafaxine HCl (Venlafaxine Hcl Xr 75 Mg Capxr) 75 mg PO DAILY [facility] Stop: 07/02/21 17:29 Last Admin: 06/03/21 08:28 Dose: 75 mg Documented by:
[2021-06-03] MEDS ORDERED: STROKE PATIENT DISCHARGE STA (14:53)
[2021-06-03] MEDS ORDERED: CLOPIDOGREL BISULFATE 75 MG TAB PO SCH (15:00)
[2021-06-03] MEDS ORDERED: ATORVASTATIN 40 MG TAB PO SCH (15:00)
--- NOTE | 2021-06-03 15:42 | Consultation Report ---
DATE OF SERVICE: 06/03/2021 REASON FOR CONSULTATION: Dizziness. HISTORY OF PRESENT ILLNESS: The patient is a 66-year-old right-handed female with a history of hypertension and depression. On this background, about 10:00 a.m. yesterday, she began experiencing a sense of dizziness. This resulted in ambulatory dysfunction. Although the patient was not confused at the time, she is amnestic for most of yesterday. The only medication by report that she had received was meclizine. So, there is very little in terms of history that she can provide. However, her granddaughter served as a account development manager. Granddaughter was with her at that time, noted that she was not confused. She did not have slurred speech, there was no unilateral weakness, numbness or facial droop. The patient had not complained of a headache. When the patient became vertiginous, she was also nauseated, but did not vomit. They, she and her mother, took 45 minutes to move her from bed to the car to come to the Emergency Room. She is feeling well today and denies any headache, new weakness, new numbness or any ongoing dizziness. She has no prior history of dizziness, vertigo, or ear pain. There may be some minor nonpulsatile ringing. No hearing loss is noted. She has no history of a transient ischemic attack in the past. By report, she is hypertensive and has not taken her antihypertensives for 2 months. She recently traveled from [place] to the [facility] to be with family. Diagnostics were notable for a normal white count, H and H and platelet count. PT, PTT were normal. Chemistry profile notable for initial sodium of 131 and then upon repeat 140, potassium of 3.3, glucose of 143. Normal transaminases. Total cholesterol 262, LDL 170, HDL 84, triglycerides 41. COVID testing was negative. CT of the head and CTA of the head and neck were unremarkable with the exception of showing a large right greater than left thyroid nodule. MRI of the brain, which I reviewed with and without contrast, is unremarkable in spite of 8 hours of symptoms. The patient's EKG was sinus rhythm and was normal. Her echo shows mild aortic valve sclerosis, trace aortic regurg, intact interatrial septum with no evidence of an atrial septal defect and no evidence of shunt. When the patient was initially admitted, her blood pressure was 151/79. PAST MEDICAL HISTORY: Notable for hypertension, anxiety, panic disorder, history of thyroid surgery. FAMILY HISTORY: Depression, Parkinson's disease, but no stroke. SOCIAL HISTORY: Nonsmoker and nondrinker. She is here in the [facility] visiting. HOME MEDICATIONS: BuSpar, candesartan/HCTZ, but she was not taking that, vitamin D3, ketoprofen, lansoprazole, lorazepam, metoprolol, and venlafaxine. PHYSICAL EXAMINATION: VITAL SIGNS: 139/76, 80, 18, 36.9, 98%. The patient is awake and alert and through the account development manager, she is oriented x3 without any right/left confusion. Pupils are equal, round and reactive to light. The optic nerves are unremarkable. There are normal yuen, motility, facial sensation and facial symmetry. Speech is nondysarthric. Tongue is midline. Gross hearing is intact. Yip lateralizes to the left ear, air conduction is greater than bone bilaterally. TMs are unremarkable. Provocative head maneuvers with head hanging to the left reproduces some dizziness and nausea with some latency, fatigability and rotary nystagmus. There are no carotid bruits, no heart murmurs. Heart is regular rate and rhythm. Strength is full. There is no drift. Normal rapid alternating movements. Qktrus-vw-teil and ymoq-wb-qboa are normal. Sensation is intact to light touch, temperature and vibration sense. There is no dysdiadochokinesia. Her gait is unremarkable. Tandem unremarkable. Romberg is negative. IMPRESSION AND PLAN: This patient had vertigo and unsteadiness and nausea and vomiting, which lasted 8 hours. There are signs on exam that there is a peripheral labyrinthopathy and the fact that an MRI of the brain was normal after 8 hours of symptoms argues for a noncentral process. I cannot explain why the patient would be amnestic for the episode. Clearly, there was no evidence of seizure, this would not be transient global amnesia. Her blood pressure was not elevated enough to make her encephalopathic. Given that she has vascular risk factors, I would use dual antiplatelet therapy with aspirin and Plavix for 21 days, then aspirin monotherapy. If the patient cannot afford Plavix, then aspirin monotherapy. Recommend good control of blood pressure and resumption of antihypertensive. The patient has hyperlipidemia. I would recommend a statin. Labyrinthine exercises were explained to the patient and her granddaughter concerning signs and symptoms that would be more suggestive of stroke as well and discharge the patient with some Antivert. Physical therapy could be an option as an outpatient, but it is very reassuring to myself that she has already markedly improved and the patient should see myself or Ewa Dc as an outpatient in 3-4 weeks. Job ID: [id number] MTDD
--- NOTE | 2021-06-04 08:11 | Discharge Summary ---
Date of Service June 04, 2021 Admission HPI Per Admitting Provider This is a 66yo F with a PMH of HTN and anxiety who presents with vertigo since 10 this morning. Patient is visiting family from [place] for the holidays and family is interpreting at bedside. Patient reportedly woke up feeling well and made herself breakfast and was in normal state of health. Vertigo worsened with movement and improves at rest. Is associated with nausea but no vomiting. Did have a headache earlier today and is unsure when it started. Family denies any history of vertigo. Developed right-sided weakness during transition to come in the hospital and family states it took them approximately 40 minutes for granddaughter and friend to get her here due to severe vertigo and weakness. States she was still able to ambulate with assistance. Weakness has since improved, per patient. No known history of vertigo. Family states patient is confused and has been repeating information since arrival. Believes she is still in [place] and is disoriented, per family, which is not her baseline. Keeps asking for blood pressure to be rechecked. Received psychiatric treatment for panic attacks a few days ago in [place] and was told that her elevated blood pressure was due to anxiety, and so she stopped taking blood pressure medications at that time. Is not on aspirin or any blood thinners. No known personal or family stroke history. Denies any fever, chills, chest pain, shortness of breath or abdominal pain. Unable to obtain full ROS due to confusion. Admission Exam Per Admitting Provider Physical Exam: General Appearance:WD/WN, vitals as above, NAD, sitting upright in bed, appears anxious, able to follow commands Head: normocephalic, atraumatic Eyes:normal inspection, PERRL, conjunctivae normal, anicteric sclerae ENT: external ear and nose normal, oropharynx normal Neck: normal visual inspection, trachea midline, no thyromegaly Respiratory:normal respiratory effort, lungs clear to auscultation, no wheeze, rales, rhonchi. No accessory muscle use Cardiovascular: regular rate, rhythm, no murmur, normal peripheral pulses, no BLE edema. Vessels: no JVD Chest: normal inspection of chest Abdomen/GI: normal bowel sounds, soft, nontender, no hepatosplenomegaly Extremities/Musculoskeletal: no cyanosis or clubbing, extremities motor strength 5/5 Neurologic: PERRL, EOMI, accommodation nl, no vertigo noted, no face palsy, no dysarthria, CN's II-XI intact bilaterally and moves all extremities Psychiatric:A+Ox person but not to time or place, anxious Skin: no rashes, normal color, warm/dry Principal Diagnosis Dizziness likely secondary to inner ear disease, transient right-sided weakness without any stroke, hypertension, history of panic attack, Discharge Exam General Appearance: WD/WN, vitals as above, NAD, sitting upright in bed, appears anxious, able to follow commands Head: normocephalic, atraumatic Eyes: normal inspection, PERRL, conjunctivae normal, anicteric sclerae ENT: external ear and nose normal, oropharynx normal Neck: normal visual inspection, trachea midline, no thyromegaly Respiratory: normal respiratory effort, lungs clear to auscultation, no wheeze, rales, rhonchi. No accessory muscle use Cardiovascular: regular rate, rhythm, no murmur, normal peripheral pulses, no BLE edema. Vessels: no JVD Chest: normal inspection of chest Abdomen/GI: normal bowel sounds, soft, nontender, no hepatosplenomegaly Extremities/Musculoskeletal: no cyanosis or clubbing, extremities motor strength 5/5 Neurologic: PERRL, EOMI, accommodation nl, no vertigo noted, no face palsy, no dysarthria, CN's II-XI intact bilaterally and moves all extremities Psychiatric: A+Ox person but not to time or place, anxious Skin: no rashes, normal color, warm/dry Constitutional well developed and well nourished; not ill appearing Discharge Data Allergies Allergy/AdvReac Type Severity Reaction Status Date / Time Iodinated Contrast Media AdvReac Intermediate Swelling Verified 06/02/21 15:53 of the Eye Consultations 06/02/21 15:44 ED Decision to Admit Stat 06/02/21 20:35 Consult Neurology Routine Ordered Studies 06/02/21 14:17 CT angio head w con Stat CT angio neck with con Stat CT head/brain wo con Stat 06/02/21 15:52 MR brain wo/w con Stat Hospital Course (1) Vertigo: Vertigo has been ongoing and seems to be secondary to inner ear disease Vertigo is reproducible as per the neurologist MRI scan has been negative Appreciate neurology input and recommendation She will be given Antivert as needed and if discharged home this afternoon Plavix 75 mg once a day and aspirin 81 mg once a day for 21 days then aspirin alone (2) AMS (altered mental status): Resolved (3) Right sided weakness: No right-sided weakness on clinical examination noted since yesterday- 06/02/2021 No evidence of a stroke And no amnesia This is a 66yo F visiting from [place] with a PMH of HTN and anxiety who presents with vertigo, confusion and right sided weakness that is new since this morning. RLE weakness improved, still with vertigo and confusion Non-compliance with BP medications for past few days. No known stroke history Given aspirin 324mg in ED CT head with no acute intracranial abnormality CTA head/neck: * 1. No occlusion, hemodynamically significant stenosis, aneurysm, dissection, or arteriovenous malformation in the major intracranial arteries. * 2. No occlusion, hemodynamically significant stenosis, or dissection in the major cervical arteries. * 3. Large right greater than left thyroid nodules. If not previously evaluated, nonemergent ultrasound is recommended. Vertigo slightly improved with meclizine. Plan to continue PRN Brain MRI-has been negative Echo of the heart-normal LV size, mild concentric LVH, all motion is normal, EF 60 to 65%, all chambers are normal, aortic valve sclerosis mild without stenosis, trace aortic regurgitation, the interatrial septum is intact with no evidence of an atrial septal defect and no evidence of intra-atrial shunt Lipid profile noted to have a cholesterol of 262 and LDL of 170 Hemoglobin A1c is 5.9 Appreciate neurology input and recommendation She has been ambulating in the room without any difficulties Discussed with the granddaughter and she will be discharged home this afternoon Will give her Plavix 75 mg once a day and aspirin 81 mg once a day for 21 days then aspirin alone Also will start Lipitor 40 mg once a day (4) Hypokalemia: Normalized (5) Hyponatremia: Na 131, potassium 3.3 in setting of HCTZ - hold for now Receiving gentle IV fluids. Replacing potassium. Repeat BMP tomorrow Normalized (6) Panic disorder: We will continue her outpatient medications (7) Anxiety: Given missed doses of venlafaxine, buspar. Clarifying Ativan dose with family - needs to be updated (8) Hypertension: Plan to hold antihypertensives for now to allow for permissive HTN in setting of possible ischemic event DVT Ppx: SQ heparin Code status: FULL PCP: Resides in [place] (here visiting family) Dispo: Observation PCU Will be discharged home this afternoon Total Time Total Time Spent Total Time Spent (In Minutes): 45 minutes Discharge Plan Discharge Items Patient Disposition: Home - Self-Care Reason For Visit: HEADACHE, VERITGO, NAUSEA, SOB Discharge Diagnosis: Dizziness likely secondary to inner ear disease, transient right-sided weakness without any stroke, hypertension, history of panic attack, Condition on Discharge: Good Activity: Resume your previous activity Non-emergency contact: Primary Care Provider Call non-emergency contact if: you have any medication questions and your symptoms worsen Follow-up/Referrals: PCP,NO [Primary Care Provider] - (Please make an appointment with your primary care physician within 7 days following discharge.) Diet: Regular Addtl Attending Provider Instructions: Please take precautions to avoid falls Take your medications as advised You will need to have an ultrasound of the thyroid gland through your PCPs office [facility] neurology office will call you with an appointment within 3 weeks for follow-up All of your home medications have been continued Pending Studies at Discharge: No Stand-Alone Forms: My [facility], Smoking Cessation Medications and DC Order Prescriptions: New atorvastatin 40 mg Tablet 40 mg PO QAM 30 Days Qty: 30 RF: 0 meclizine 12.5 mg Tablet 12.5 mg PO TID PRN (Reason: dizziness or vertigo) 10 Days Qty: 30 RF: 0 clopidogrel 75 mg Tablet 75 mg PO QAM 20 Days Qty: 20 RF: 0 aspirin 81 mg Tablet,Delayed Release (Dr/Ec) 81 mg PO DAILY 30 Days Qty: 30 RF: 0 Continued ketoprofen 25 mg Capsule 25 mg PO DIRECTED RF: 0 candesartan-hydrochlorothiazid 16-12.5 mg Tablet 1 tab PO DAILY RF: 0 metoprolol tartrate 50 mg Tablet 50 mg PO DIRECTED RF: 0 venlafaxine 75 mg Tablet Extended Release 24hr 75 mg PO DAILY RF: 0 buspirone 5 mg Tablet 5 mg PO DAILY RF: 0 lorazepam [Ativan] 1 mg Tablet 1 mg PO DIRECTED RF: 0 lansoprazole 30 mg Capsule,Delayed Release(Dr/Ec) 30 mg PO DAILY RF: 0 cholecalciferol (vitamin D3) 10 mcg/mL (400 unit/mL) Drops 10 mcg PO DAILY RF: 0 Discharge Orders: Discharge Order (Routine); Ordered 06/03/21 Ordered By: Milla Perales/Other Patient Handouts: Meclizine Oral Tablet 12.5 mg, Lipitor Oral T ablet 40 mg, Plavix Oral Tablet 75 mg Admission Data Admit Date/Time: 06/02/21 16:52 Attending Provider: Milla Sagastume Admit Provider: Milla Sagastume Primary Care Provider: PCP,NO Other Providers: Milla Sagastume ; Melecio Loza
== END 2021-06-03 15:47 | disposition home or self-care (01) ==
LOC: ED 13:55 → 4S3 13:55 → EDINP 13:55
DX: R53.1 Weakness; Z79.899 Other long term (current) drug therapy; E87.6 Hypokalemia; F41.9 Anxiety disorder, unspecified; Z20.822 Contact with and (suspected) exposure to COVID-19; R41.82 Altered mental status, unspecified; I10 Essential (primary) hypertension; E87.1 Hypo-osmolality and hyponatremia; Z91.041 Radiographic dye allergy status; Z79.82 Long term (current) use of aspirin; R42 Dizziness and giddiness; F41.0 Panic disorder [episodic paroxysmal anxiety]